=== PATIENT | female | born 1960 ===

== ENCOUNTER → 2018-01-22 | Outpatient (CLI) | payer OTHER, MEDICAID | LOC: CIMAGING 14:46 | PROVIDERS: ATTEND Family Medicine | DX: R10.9 Unspecified abdominal pain (principal); R19.7 Diarrhea, unspecified; J84.10 Pulmonary fibrosis, unspecified; M46.97 Unspecified inflammatory spondylopathy, lumbosacral region | CPT/HCPCS: 74022-PO ==